=== PATIENT | male | born 2000 | race African-American/Black ===

== ENCOUNTER 2022-01-22 02:49 | Emergency (ER) | payer MEDICAID, OTHER ==
[~2022-01-22] VITALS: Ht 170.2 cm; Wt 80.7 kg
[2022-01-22 03:15] VITALS: BP 136/96
[2022-01-22] MEDS ORDERED: FAMOTIDINE 20MG VIAL IV ONE ×2 (03:15→03:30)
[2022-01-22] MEDS ORDERED: ONDANSETRON 4MG INJ ONE (03:15)
[2022-01-22] MEDS ORDERED: 0.9%NACL 1000ML 1,000 ML IV ONE (03:15)
[2022-01-22 03:21] LABS: BASOPHILS % (AUTO) 0.2 % (0.0-5.0); EOSINOPHILS % (AUTO) 1.8 % (0.0-8.0); HEMATOCRIT 46.6 % (42-54); LYMPHOCYTES % (AUTO) 7.1 % (21.0-51.0); MEAN CORPUSCULAR HEMOGLOBIN 30.5 pg (27.0-33.0); MEAN CORPUSCULAR HGB CONC 33.7 g/dL (32.0-36.0); MEAN CORPUSCULAR VOLUME 90.5 fL (79-99); MONOCYTES % (AUTO) 6.2 % (3.0-13.0); NEUTROPHILS % (AUTO) 84.3 % (40.0-77.0); PLATELET COUNT (AUTO) 142 K/uL (130-400); RED BLOOD CELL COUNT(AUTO) 5.15 MIL/uL (4.50-6.20); RED CELL DISTRIBUTION WIDTH 12.6 % (11.0-15.5); WHITE BLOOD COUNT (AUTO) 10.1 K/uL (4.8-10.8)
[2022-01-22 03:30] LABS: CREATININE 1.2 mg/dL (0.5-1.5); POTASSIUM 3.6 mmol/L (3.5-5.1)
[2022-01-22] MEDS ORDERED: ONDANSETRON 4MG INJ IVP ONE ×2 (03:30→04:00)
[2022-01-22] MEDS ORDERED: 0.9%NACL 1000ML 1,000 ML IV SCH (03:30)
[2022-01-22 03:35] LABS: ALBUMIN 4.4 g/dL (3.5-5.0); BILIRUBIN,TOTAL 0.6 mg/dL (0.2-1.0); TOTAL PROTEIN, SERUM 8.1 g/dL (6.0-8.3)
[2022-01-22] MEDS ORDERED: ACET-2079 PO (03:41)
[2022-01-22] MEDS ORDERED: ONDA-104 PO (03:41)
[2022-01-22] MEDS ORDERED: LOPERAMIDE HCL 2 MG CAP PO ONE ×2 (03:47→04:00)
[2022-01-22] MEDS ORDERED: MORPHINE 2 MG SYG IVP ONE (04:00)
== END 2022-01-22 04:13 | disposition home or self-care (01) ==
LOC: EDH 02:49
DX: K52.9 Noninfective gastroenteritis and colitis, unspecified (principal); A05.9 Bacterial foodborne intoxication, unspecified
CPT/HCPCS: 36415; 80053; 85025; 96361; 96374; 96375; 99284; J2405 ×2; J3490; J7030

== ENCOUNTER 2022-06-23 11:14 | Emergency (ER) | payer OTHER ==
[~2022-06-23] VITALS: Ht 172.7 cm; Wt 90.7 kg
[~2022-06-23 11:14] MED LIST: ACET-2079 PO; ONDA-104 PO
[2022-06-23 11:31] VITALS: BP 122/77
[2022-06-23 11:46] LABS: BASOPHILS % (AUTO) 0.3 % (0.0-5.0); EOSINOPHILS % (AUTO) 1.1 % (0.0-8.0); HEMATOCRIT 44.3 % (42-54); LYMPHOCYTES % (AUTO) 7.4 % (21.0-51.0); MEAN CORPUSCULAR HGB CONC 34.3 g/dL (32.0-36.0); MEAN CORPUSCULAR VOLUME 87.5 fL (79-99); MONOCYTES % (AUTO) 9.1 % (3.0-13.0); NEUTROPHILS % (AUTO) 81.8 % (40.0-77.0); PLATELET COUNT (AUTO) 144 K/uL (130-400); RED BLOOD CELL COUNT(AUTO) 5.06 MIL/uL (4.50-6.20); RED CELL DISTRIBUTION WIDTH 12.5 % (11.0-15.5); WHITE BLOOD COUNT (AUTO) 9.5 K/uL (4.8-10.8)
[2022-06-23 11:52] LABS: POTASSIUM 4.1 mmol/L (3.5-5.1)
[2022-06-23 11:57] LABS: ALBUMIN 4.2 g/dL (3.5-5.0); TOTAL PROTEIN, SERUM 7.8 g/dL (6.0-8.3)
[2022-06-23 11:59] LABS: APPEARANCE,URINE CLEAR (CLEAR); BILIRUBIN,URINE NEGATIVE (NEGATIVE); COLOR,URINE COLORLESS (YELLOW); GLUCOSE, URINE (UA) NEGATIVE (NEGATIVE); KETONES,URINE NEGATIVE (NEGATIVE); LEUKOCYTE ESTERASE ,URINE NEGATIVE Leu/uL (NEGATIVE); NITRATE,URINE NEGATIVE (NEGATIVE); OCCULT BLOOD,URINE NEGATIVE (NEGATIVE); PH,URINE 7.5 (5.0-8.0); PROTEIN,URINE NEGATIVE (NEGATIVE); UROBILINOGEN,URINE 0.2 mg/dL (0.2-1.0)
[2022-06-23] MEDS ORDERED: IBUPROFEN 600 MG TABLET PO ONE (13:00)
== END 2022-06-23 13:34 | disposition home or self-care (01) ==
LOC: EDH 11:14
DX: R10.9 Unspecified abdominal pain (principal); Z20.822 Contact with and (suspected) exposure to COVID-19; J45.909 Unspecified asthma, uncomplicated
CPT/HCPCS: 99283; 87635; 80053; 83690; 85025; 87804 ×2; 81003; 36415; C9803

== ENCOUNTER 2024-05-26 20:19 | Emergency (ER) | payer SELFPAY ==
[~2024-05-26] VITALS: Ht 170.2 cm; Wt 77.1 kg
[2024-05-26] MEDS ORDERED: IBUP-2077 PO (20:39)
[2024-05-26] MEDS ORDERED: CLIN-141 PO (20:39)
[2024-05-26 21:23] VITALS: BP 128/76; PULSE 86; RESP 18; O2SAT 99
[2024-05-26] MEDS: CLINDAMYCIN 150 MG CAP PO ONE (21:41)
[2024-05-26] MEDS: KETOROLAC 60 MG VIAL (30MG/ML) IM ONE (21:41)
== END 2024-05-26 21:52 | disposition home or self-care (01) ==
LOC: EDH 20:19
DX: K02.9 Dental caries, unspecified (principal); J45.909 Unspecified asthma, uncomplicated; Z79.899 Other long term (current) drug therapy
CPT/HCPCS: 99283; 96372; J1885